=== PATIENT | male | born 1945 | race Caucasian/White ===

== ENCOUNTER 2018-05-13 08:34 | Day surgery (SDC) | payer MEDICARE, OTHER ==
[~2018-05-13] VITALS: Ht 182.9 cm; Wt 97.7 kg
[~2018-05-13 08:34] MED LIST: BAYER CHEWABLE81 MG PO; CALCIUM 600+D T1 TA1 PO; COZAAR25 MG PO; MAG-OXIDE400 MG PO; SYNTHROID125 MCG PO; VITAMIN B-122500 MCG PO; ZANTAC150 MG PO; ZOCOR40 MG PO
[2018-05-13 08:50] VITALS: Ht 182.9 cm; Wt 97.7 kg
[2018-05-13] MEDS ORDERED: LIPITOR80 MG PO (08:55)
[2018-05-13] MEDS ORDERED: ELIQUIS5 MG PO (08:55)
[2018-05-13] MEDS ORDERED: ZIAC 5-6.25 MG1 TAB PO (08:56)
[2018-05-13 09:29] LABS: HEMATOCRIT 39.3 % (42.0-54.0); HEMOGLOBIN 13.6 g/dL (13.5-17.5); LYMPHOCYTES 18.8 % (15-50); MCH 31.3 pg (26.0-34.0); MCHC 34.6 g/dL (31.0-37.0); MCV 90.6 fL (80.0-100.0); NEUTROPHILS 71.3 % (40-80); PLATELET COUNT 194 10x3/uL (130-400); RBC 4.34 10x6/uL (4.20-6.10); RDW 13.2 % (11.5-14.5); WBC 7.4 10x3/uL (4.8-10.8)
[2018-05-13 09:46] LABS: APTT 28.5 SECONDS (22.8-39.4); INR 1.07 (0.85-1.17); PROTIME 13.5 SECONDS (11.6-15.0)
[2018-05-13 09:51] LABS: ALBUMIN 4.1 g/dL (3.4-5.0); ANION GAP 10.6 mmol/L (8-16); BILIRUBIN - TOTAL 1.64 mg/dL (0.2-1.3); CALCIUM 9.4 mg/dL (8.5-10.1); CARBON DIOXIDE 26.5 mmol/L (21.0-32.0); CREATININE - SERUM 1.4 mg/dL (0.6-1.3); POTASSIUM - SERUM 4.1 mmol/L (3.5-5.1); PROTEIN - SERUM 7.8 g/dL (6.4-8.2)
[2018-05-13 11:00] VITALS: BP 114/72
[2018-05-13 12:00] VITALS: BP 120/68
== END 2018-05-13 16:50 | disposition home or self-care (01) ==
LOC: OBSVTIME → D.ER 08:34 → D.OPS 08:34 → D.ER 10:51 → D.EDHOLD 10:51 → OBSVTIME 10:52 → EDSTATUS 12:00 → D.EDHOLD 12:41 → D.SDCHOLD 12:41 → D.OPS 16:50
PROVIDERS: Family Medicine
DX: T18.128A Food in esophagus causing other injury, initial encounter (principal); K22.2 Esophageal obstruction; K29.80 Duodenitis without bleeding; K29.50 Unspecified chronic gastritis without bleeding; Z01.812 Encounter for preprocedural laboratory examination